=== PATIENT | female | born 1965 | race Caucasian/White ===

== ENCOUNTER 2019-12-13 15:04 | Emergency (ER) | payer MEDICARE ==
[~2019-12-13] VITALS: Ht 162.6 cm; Wt 111.1 kg
--- NOTE | 2019-12-13 15:05 | NUR ---
Patient BIBA BLS, transferred to bed 7. RN evaluating patient at bedside.
[2019-12-13 15:10] VITALS: BP 163/84
--- NOTE | 2019-12-13 15:23 | NUR ---
while hiking on [employer] as per pt she slipped and fell, injured right ankle. mild swelling, discoloration---unable to bear full weight
[2019-12-13] MEDS ORDERED: MORPHINE SULFATE 4 MG/ML SYR IM ONE (16:10)
--- NOTE | 2019-12-13 16:13 | NUR ---
Dr. Jones is evaluating the patient at bedside.
--- NOTE | 2019-12-13 16:14 | NUR ---
AT BEDSIDE--PT REFUSED ANALGESIC AT THIS TIME STATED SHE TOOK DILAUDID 8MG 1 HR PRIOR TO ARRIVAL MD ARGUETA
--- NOTE | 2019-12-13 16:35 | NUR ---
APPLIED POSTERIOR LONG LEG SPLINT TO LEFT LEG WITHOUT ANY ISSUES
[2019-12-13 16:36] VITALS: BP 148/91
--- NOTE | 2019-12-13 16:37 | NUR ---
Patient discharged with v/s stable. Written and verbal after care instructions given and explained. Patient verbalized understanding. Wheel Chair Assisted with to car. All questions addressed prior to discharge. Advised to follow up with PMD. CD HANDED TO PT
--- NOTE | 2019-12-13 16:37 | NUR ---
APPLIED MIGUEL WRAP TO RIGHT ANKLE WITHOUT ANY ISSUES
== END 2019-12-13 16:37 | disposition home or self-care (01) ==
LOC: MED 15:04
DX: S82.402A Unspecified fracture of shaft of left fibula, initial encounter for closed fracture (principal); S93.401A Sprain of unspecified ligament of right ankle, initial encounter; W18.30XA Fall on same level, unspecified, initial encounter; Y93.89 Activity, other specified; Y92.89 Other specified places as the place of occurrence of the external cause; Y99.8 Other external cause status
CPT/HCPCS: 29505; 73590; 73610; 99284; Q0092